=== PATIENT | male | born 1980 | race Caucasian/White ===

== ENCOUNTER 2021-04-11 14:39 | Emergency (ER) | payer OTHER ==
[2021-04-11] MEDS ORDERED: Sodium Chloride 0.9% 1,000 ML IV ONE (14:42)
--- NOTE | 2021-04-11 14:43 | EDM.PDOC ---
ED HPI GENERAL MEDICAL PROBLEM - General Chief Complaint: Syncope Stated Complaint: FALL Time Seen by Provider: 04/11/21 14:41 - History of Present Illness INITIAL COMMENTS - FREE TEXT/NARRATIVE: Patient is a previously well 40-year-old male. He was working in the heat on an oil rig. He only had a bottle and a half of water today is that was all that was left at the job site. He states that normally when he feels too hot he has an air conditioned check he can go into. However things are going wrong on the right side and so he was not able to do this. He remembers walking feeling very tired heavy and hot and then waking up in the changing shed with multiple guys around him. He denies any history of palpitations chest pain or shortness of breath. Right now he states that he feels well. No lightheadedness no dizzin ess no vertigo no chest pain or shortness of breath. Per EMS the patient was found down on the ground. He was very hot for initial bystanders they told him out of the heat and wrapped him in wet towels. Temp for EMS in the rig was 97. It was a fall from ground-level - Related Data Allergies Allergy/AdvReac Type Severity Reaction Status Date / Time No Known Allergies Allergy Verified 04/11/21 14:50 Home Meds: Home Meds . [No Known Home Meds] 04/11/21 [History] ED ROS GENERAL - Review of Systems Review Of Systems: See Below Free Text/Narrative/Comment: General: No fever. Skin: No rash. Eyes: No vision problems. ENT: No sore throat. Neck: No neck stiffness. Respiratory: No shortness of breath. Cardiac: No chest pain. Gastrointestinal: No nausea, vomiting or abdominal pain. Musculoskeletal: No myalgias/arthralgias. Neurologic: No headache. ED EXAM, GENERAL - Physical Exam Exam: See Below Free Text/Narrative:: General Appearance: No acute distress, appears comfortable Skin: No rash HEENT: Normocephalic/atraumatic, sclera anicteric, mucous membranes dry, left pupil teardrop shaped (patient states that this has been present since ) Neck: Normal range of motion Chest and Lungs: Bilateral breath sounds, clear to auscultation Cardiovascular: Regular rate and rhythm, no murmur Abdomen: Soft, non-tender Back: Normal Musculoskeletal: No edema or tenderness Neurologic: Awake, alert, no obvious deficits, moving all extremities Psychiatric: Appropriate, cooperative #1 Interpretation EKG Date: 04/11/21 Time: 14:42 EKG Interpretation Comments: NSR rate of 61, normal axis and intervals, no acute ischemia, normal EKG Course - Vital Signs Last Recorded V/S: Last Vital Signs Temp 97.7 F 04/11/21 14:47 Pulse 84 04/11/21 15:04 Resp 20 04/11/21 15:04 BP 133/71 04/11/21 15:04 Pulse Ox 97 04/11/21 15:04 - Orders/Labs/Meds Orders: Active Orders 24 hr Category Date Time Status Sodium Chloride 0.9% [Saline Flush] Med 04/11/21 14:41 Active 10 ml FLUSH ASDIRECTED PRN Sodium Chloride 0.9% [Saline Flush] Med 04/11/21 14:41 Active 2.5 ml FLUSH ASDIRECTED PRN Saline Lock Insert [OM.PC] Stat Oth 04/11/21 14:41 Ordered Medication Orders Sodium Chloride (Sodium Chloride 0.9% 10 Ml Syringe) 10 ml FLUSH ASDIRECTED PRN PRN Reason: Keep Vein Open Last Admin: 04/11/21 14:49 Dose: 10 ml Documented by: Admin: 04/11/21 14:48 Dose: 10 ml Documented by: VAUGHN Sodium Chloride (Sodium Chloride 0.9% 2.5 Ml Syringe) 2.5 ml FLUSH ASDIRECTED PRN PRN Reason: Keep Vein Open Last Admin: 04/11/21 14:50 Dose: 2.5 ml Documented by: Admin: 04/11/21 14:48 Dose: 2.5 ml Documented by: VAUGHN Labs: Laboratory Tests 04/11/21 04/11/21 Range/Units 14:58 14:58 WBC 9.18 (4.0-11.0) K/uL RBC 4.44 L (4.50-5.90) M/uL Hgb 13.8 (13.0-17.0) g/dL Hct 40.4 (38.0-50.0) % MCV 91.0 (80.0-98.0) fL MCH 31.1 (27.0-32.0) pg MCHC 34.2 (31.0-37.0) g/dL RDW Std Deviation 44.7 (28.0-62.0) fl RDW Coeff of Freya 14 (11.0-15.0) % Plt Count 185 (150-400) K/uL MPV 10.10 (7.40-12.00) fL Neut % (Auto) 77.0 (48.0-80.0) % Lymph % (Auto) 13.0 L (16.0-40.0) % [place] % (Auto) 9.2 (0.0-15.0) % Eos % (Auto) 0.5 (0.0-7.0) % Baso % (Auto) 0.3 (0.0-1.5) % Neut # (Auto) 7.1 H (1.4-5.7) K/uL Lymph # (Auto) 1.2 (0.6-2.4) K/uL [place] # (Auto) 0.8 (0.0-0.8) K/uL Eos # (Auto) 0.1 (0.0-0.7) K/uL Baso # (Auto) 0.0 (0.0-0.1) K/uL Nucleated RBC % 0.0 /100WBC Nucleated RBCs # 0 K/uL Sodium 141 (136-148) mmol/L Potassium 3.3 L (3.5-5.1) mmol/L Chloride 106 (98-107) mmol/L Carbon Dioxide 29.5 (21.0-32.0) mmol/L BUN 16 (7.0-18.0) mg/dL Creatinine 1.0 (0.8-1.3) mg/dL Est Cr Clr Drug Dosing TNP Estimated GFR (MDRD) > 60.0 ml/min Glucose 89 (74-106) mg/dL Calcium 8.8 (8.5-10.1) mg/dL Magnesium 1.7 L (1.8-2.4) mg/dL Total Bilirubin 1.0 (0.2-1.0) mg/dL AST 24 (15-37) IU/L ALT 24 (14-63) IU/L Alkaline Phosphatase 44 L (46-116) U/L Troponin I < 0.050 (0.000-0.056) ng/mL Total Protein 6.8 (6.4-8.2) g/dL Albumin 3.7 (3.4-5.0) g/dL Globulin 3.1 (2.6-4.0) g/dL Albumin/Globulin Ratio 1.2 (0.9-1.6) Meds: Medications Generic Name Dose Route Start Last Admin Trade Name Freq PRN Reason Stop Dose Admin Sodium Chloride 10 ml 04/11/21 14:41 04/11/21 14:49 Sodium Chloride 0.9% 10 Ml Syringe FLUSH 10 ml ASDIRECTED PRN Administration Keep Vein Open Sodium Chloride 2.5 ml 04/11/21 14:41 04/11/21 14:50 Sodium Chloride 0.9% 2.5 Ml Syringe FLUSH 2.5 ml ASDIRECTED PRN Administration Keep Vein Open Discontinued Medications Generic Name Dose Route Start Last Admin Trade Name Freq PRN Reason Stop Dose Admin Sodium Chloride 1,000 mls @ 999 mls/hr 04/11/21 14:42 04/11/21 14:47 Normal Saline IV 04/11/21 15:42 999 mls/hr .Bolus ONE Administration Magnesium Oxide 400 mg 04/11/21 15:48 Magnesium Oxide 400 Mg Tab PO 04/11/21 15:49 ONETIME ONE Potassium Chloride 40 meq 04/11/21 15:48 Potassium Chloride 10% 20 Meq/15 Ml Soln 30 Ml Ud Cup PO 04/11/21 15:49 ONETIME ONE Departure - Departure Time of Disposition: 15:50 Disposition: Home, Self-Care 01 Condition: Good Clinical Impression: Syncope and collapse, Hypomagnesemia, Hypokalemia - Discharge Information *PRESCRIPTION DRUG MONITORING PROGRAM REVIEWED*: Not Applicable *COPY OF PRESCRIPTION DRUG MONITORING REPORT IN PATIENT DALE: Not Applicable Instructions: Rehydration, Adult, Syncope Forms: ED Department Discharge Additional Instructions: You passed out today because of a combination of dehydration and heat exposure. Please try and do your best to make sure that you protect yourself from excess heat exposure and that you stay well-hydrated while you are at work. Your labs today showed mildly low potassium and mildly low magnesium likely related to your sweating exposure to the heat. You were given oral potassium and magnesium here before you left. Your EKG showed no signs of an abnormal heart rhythm. I do encourage you to follow-up with your primary care doctor. If you do not have a primary care doctor you can follow-up at one of the clinics listed below. [facility] [address] [place] [address] [facility] [address] [place] [address] The following information is given to patients seen in the emergency department who are being discharged to home. This information is to outline your options for follow-up care. We provide all patients seen in our emergency department with a follow-up referral. The need for follow-up, as well as the timing and circumstances, are variable depending upon the specifics of your emergency department visit. If you don't have a primary care physician on staff, we will provide you with a referral. We always advise you to contact your personal physician following an emergency department visit to inform them of the circumstance of the visit and for follow-up with them and/or the need for any referrals to a consulting specialist. The emergency department will also refer you to a specialist when appropriate. This referral assures that you have the opportunity for follow-up care with a specialist. All of these measure are taken in an effort to provide you with optimal care, which includes your follow-up. Under all circumstances we always encourage you to contact your private physician who remains a resource for coordinating your care. When calling for follow-up care, please make the office aware that this follow-up is from your recent emergency room visit. If for any reason you are refused follow-up, please contact the [facility] Emergency Department at and asked to speak to the emergency department charge nurse. Sepsis Event Note (ED) - Focused Exam Vital Signs: Vital Signs Temp Pulse Resp BP Pulse Ox 04/11/21 15:04 84 20 133/71 97 04/11/21 14:47 97.7 F 59 L 16 121/78 97 - My Orders Last 24 Hours: My Active Orders 04/11/21 14:41 Sodium Chloride 0.9% [Saline Flush] 10 ml FLUSH ASDIRECTED PRN Sodium Chloride 0.9% [Saline Flush] 2.5 ml FLUSH ASDIRECTED PRN Saline Lock Insert [OM.PC] Stat - Assessment/Plan Last 24 Hours: My Active Orders 04/11/21 14:41 Sodium Chloride 0.9% [Saline Flush] 10 ml FLUSH ASDIRECTED PRN Sodium Chloride 0.9% [Saline Flush] 2.5 ml FLUSH ASDIRECTED PRN Saline Lock Insert [OM.PC] Stat Assessment:: 40-year-old male presenting with syncope with prodrome that was likely brought on by some degree of heatstroke. Body temperature has normalized. His EKG is without concerning finding patient is clinically dehydrated with dry mucous membranes patient was given 1 L of IV normal saline in route he will be given a second liter here. CBC CMP magnesium and troponin to assess for any signs of ACS or arrhythmia as well as exclude any electrolyte derangement. Patient continues to feel well then he will be safe for discharge. Patient arrived in a c-collar. He had no midline tenderness or step-off in this, was clinically cleared by myself benign on my initial exam. Labs with minimal hypokalemia and hypomagnesemia. These were repleted orally. Patient ambulates with a steady gait his vital signs remained stable he is felt appropriate for discharge.
[2021-04-11] MEDS: Sodium Chloride 0.9% 2.5 ML Syringe FLUSH PRN ×2 (14:48→14:50)
[2021-04-11] MEDS: Sodium Chloride 0.9% 10 ML Syringe FLUSH PRN ×2 (14:48→14:49)
[2021-04-11 15:39] LABS: BLOOD UREA NITROGEN,BUN 16 mg/dL (7.0-18.0); CARBON DIOXIDE,CO2 29.5 mmol/L (21.0-32.0); CHLORIDE,CL 106 mmol/L (98-107); GLUCOSE RANDOM 89 mg/dL (74-106); POTASSIUM,K 3.3 mmol/L (3.5-5.1); SODIUM,NA 141 mmol/L (136-148)
[2021-04-11] MEDS ORDERED: Magnesium Oxide 400 MG Tab PO ONE (15:48)
[2021-04-11] MEDS ORDERED: Potassium Chloride 10% 20 MEQ/15 ML Soln 30 ML UD Cup PO ONE (15:48)
== END 2021-04-11 16:15 | disposition home or self-care (01) ==
LOC: MW.ED 14:39
DX: R55 Syncope and collapse (principal); E87.6 Hypokalemia; E83.42 Hypomagnesemia
CPT/HCPCS: 36415; 80053; 83735; 84484; 85025; 93005; 99284; A9270; J7030